=== PATIENT | female | born 1965 | race Caucasian/White ===

== ENCOUNTER 2022-07-24 12:14 | Outpatient (CLI) | payer OTHER, SELFPAY ==
[2022-07-24 14:50] LABS: Chloride* 102 mmol/L (96-114); Potassium* 4.8 mmol/L (3.6-5.1); Sodium* 136 mmol/L (135-149)
[2022-07-24 14:53] LABS: Alanine Aminotransferase* 16 U/L (4-35); Blood Urea Nitrogen* 15 mg/dL (7-30); Carbon Dioxide* 25 mmol/L (20-32); Cholesterol* 191 mg/dL (90-199); Creatinine* 0.6 mg/dL (0.5-1.5); Estimated Glomerular Filt Rate 103 ml/min; Glucose* 91 mg/dL (60-115)
[2022-07-24 14:54] LABS: Calcium* 10.1 mg/dL (8.4-10.6); Triglycerides* 86 mg/dL (40-149)
[2022-07-24 15:02] LABS: HDL Cholesterol* 116 mg/dL (>=50); LDL Cholesterol Calculated 58 mg/dL (<100)
== END 2022-07-24 12:15 | disposition home or self-care (01) ==
PROVIDERS: PCP Family Medicine; Visit Provider Family Medicine
DX: G89.29 Other chronic pain (principal); M54.2 Cervicalgia; Z13.6 Encounter for screening for cardiovascular disorders; Z79.899 Other long term (current) drug therapy
CPT/HCPCS: 80048; 80061; 84460

== ENCOUNTER 2023-09-22 10:23 | Outpatient (CLI) | payer OTHER, SELFPAY ==
--- NOTE | 2023-09-22 10:15 | CRLHL7_ITS ---
For Patients: As a result of the Century Cures Act, medical imaging exams and procedure reports are released immediately into your electronic medical record. You may view this report before your referring provider. If you have questions, please contact your health care provider. BILATERAL SCREENING MAMMOGRAM WITH COMPUTER-AIDED DETECTION AND TOMOSYNTHESIS TECHNIQUE: CC, MLO and Implant displaced views were obtained. These mammographic images have been obtained using full-field digital technique. These mammographic images were interpreted with the benefit of computer-aided detection. Breast Tomosynthesis was used in this interpretation. COMPARISON FILM: 08/23/20 [facility], [place], req. priors from [facility]. 08/15/23, 02/11/23, 02/04/23 and 02/11/23. FINDINGS: There are scattered areas of fibroglandular density IMPRESSION: There is no radiographic evidence for malignancy. ASSESSMENT: BI-RADS Category 2: Benign RECOMMENDATION: Routine screening mammogram in 1 year. A lay language report of this examination will be provided to the patient. Sahil Bustamante M.D. Diagnostic Radiologist [email or web address] MAGDA/Dictated by: Sahil Bustamante MD @ 09/23/2023 8:45:00 AM (Electronically Signed)
== END 2023-09-22 10:24 | disposition home or self-care (01) ==
PROVIDERS: PCP Family Medicine; Visit Provider Family Medicine
DX: Z12.31 Encounter for screening mammogram for malignant neoplasm of breast (principal)
CPT/HCPCS: 77063; 77067

== ENCOUNTER 2024-03-30 11:54 | Outpatient (CLI) | payer OTHER, SELFPAY | END 2024-03-30 11:55 | disposition home or self-care (01) | PROVIDERS: PCP Family Medicine; Visit Provider Family Medicine | DX: F90.0 Attention-deficit hyperactivity disorder, predominantly inattentive type (principal); Z13.6 Encounter for screening for cardiovascular disorders; Z13.9 Encounter for screening, unspecified | CPT/HCPCS: 80048; 80061; 80076; 85025 ==

== ENCOUNTER 2024-09-03 11:11 | Outpatient (CLI) | payer OTHER, SELFPAY ==
--- OUTSIDE RECORDS SUMMARY | 2024-09-03 11:19 | XMS_ITS | Continuity of Care Document ---
Author Organization [facility] Address [address] [place] [address] [place] [address] Phone Care Team Providers Care Machine Tool Builder Name Role Phone Will MD PEARCE, Tico Jeffries Advance Directives Directive Yes / No Effective Date File Name No Information Encounters Encounter Description Practice Location Reason(s) For Visit Diagnoses Date Provider Providers Copied on Encounter [facility], [address] [place] [address] [place], [id number], [place] tel:[phone] [facility] Eleanor No Information Will Tico. [address] [facility] [place], [place], [id number], [place]. tel:[phone] Family History Family Member Type Diagnosis Age At Onset No Information Payers Payer name Insurance type Covered libertarian ID Authoriza tion(s) No Information Social History Type Description Quantity Date Captured Comments Sex Female Smoking Status No Information Chief Complaint And Reason For Visit No Information Reason For Referral Reason For Referral No Information History Of Present Illness Encounter Date Complaint History Of Prese nt Illness No Information Functional Status Date Functional Assessmen t No Information Instructions Date Instruction Additional Infor mation No Information Assessments Type Assessment Date No Information Patient Care Teams Name Effective Dates (start - stop) Status Members No Information
--- OUTSIDE RECORDS SUMMARY | 2024-09-03 11:19 | XMS_ITS | Clinical Summary ---
Author Organization [facility] Address [place], [place] [address] Care Team Providers Care Winder Operator Name Role Phone Sahil Khan MD Primary Care Provider + Allergies Active Allergy Reactions Criticality Noted Date Comments Gabapentin Other - Describe In Comment Field 09/02/2019 Muscle jerking Morphine Nausea And Vomiting 09/12/2014 ~5 min after receiving morphine, pt recalls she has intolerance- N/V Penicillins *Unknown 09/12/2014 Medications Medication Sig Dispensed Refills Start Date End Date Status cyclobenzaprine (FLEXERIL) 5 mg tablet Take 5 mg by mouth. 10/12/2018 Active ALPRAZolam (XANAX) 0.5 mg tabletIndications:Anx iety Take 1 tablet by mouth at bedtime, may repeat once. 30 tablet 08/19/2019 Active oxyCODONE (OXYCONTIN) 20 mg SUSTAINED release tabletIndications:Nec k pain, chronic Take 1 tablet by mouth every 12 hours 19 tablet 08/26/2019 Active oxyCODONE-acetaminoph en, 7.5-325 mg, (PERCOCET) per tabletIndications:Nec k pain, chronic Take 1 tablet by mouth every 6 hours if needed for Pain 10 tablet 08/26/2019 Active desvenlafaxine succinate (PRISTIQ) 50 mg Extended-Release tabletIndications:Chr onic pain syndrome Take 1 tablet by mouth every morning. 30 tablet 1 09/02/2019 Active hydroxychloroquine (PLAQUENIL) 200 mg tabletIndications:Art hritis Take 1 tablet by mouth once daily. 30 tablet 09/02/2019 Active SUMAtriptan (IMITREX) 50 mg tabletIndications:Carlos danielle syndrome Take 1 tablet by mouth every 2 hours if needed for Migraine (max 2 doses in 24 hours). 20 tablet 1 09/02/2019 Active pantoprazole (PROTONIX) 20 mg tabletIndications:Gas troesophageal reflux disease, esophagitis presence not specified Take 1 tablet by mouth once daily before a meal. 30 tablet 09/02/2019 Active Active Problems Problem Noted Date Diagnosed Date Drug-seeking behavior 09/02/2019 Neck pain, chronic 09/02/2019 Gastroesophageal reflux disease 09/02/2019 Chronic pain syndrome 09/02/2019 Arthritis 09/02/2019 Immunizations Name Administration Dates Next Due Influenza, IIV4 10/23/2017,11/17/2012 Tuberculin (PPD) 06/23/2016 Family History Medical History Relation Name Comments Cancer Brother testicular Diabetes Father Multiple myeloma Mother Relation Name Status Comments Brother Alive Father Alive Mother Alive Social History Tobacco Use Types Packs/Day Years Used Date Smoking Tobacco: Every Day Cigarettes Smokeless Tobacco: Never Tobacco Cessation:Ready to Q uit: No; Counseling Given: Yes Alcohol Use Standard Drinks/Week Comments Yes 0 (1 standard drink = 0.6 oz pur e alcohol) rare PHQ-2 Answer Date Recorded PHQ-2 Score 0 09/02/2019 Sex and Gender Information Value Date Recorded Sex Assigned at Not on file Gender Identity Not on file Sexual Orientation Not on file Obstetrics History Last Filed Vital Signs Vital Sign Reading Time Taken Comments Blood Pressure 126/70 09/02/2019 8:44 AM CDT Pulse 104 09/02/2019 8:44 AM CDT Temperature 37.4 ??C (99.3 ??F) 09/12/2014 3:16 PM CS T Respiratory Rate 15 08/19/2019 8:00 AM CDT Oxygen Saturation 99% 08/19/2019 8:00 AM CDT Inhaled Oxygen Concentration - - Weight 63.3 kg (139 lb 8 oz) 09/02/2019 8:44 AM CDT Height 168.9 cm (5' 6.5) 09/02/2019 8:44 AM CDT Body Mass Index 22.18 09/02/2019 8:44 AM CDT Plan of Treatment Health Maintenance Due Date Last Done Comments Tdap 1974 HIV for age 15-65 1978 Hepatitis C screening for age 18-79 1981 Tetanus booster 1983 Pap test for age 21-65 02/11/1984 Colonoscopy through age 75 02/11/2008 Lipids for age 45-75 02/11/2008 Zoster (shingles) series for age 50+ (1 of 2) 2013 BMI (ht and wt on same day) for age 18+ 09/02/2020 09/02/2019, 08/19/2019, 06/01/2019, Additional history exists Depression screening for age 12+ 09/02/2020 09/02/2019, 06/01/2019 COVID-19 vaccine series ( season) 2024 02/19/2021, 01/30/2021 Influenza for age 50-64 07/11/2024 10/23/2017, 11/17 Mammogram for age 45-75 08/15/2024 08/15/20, 02/11/2023, 02/04/2023 Pneumococcal series for age 6-64 Aged Out No longer eligible based on patient's age to complete this topic Procedures Procedure Name Priority Date/Time Associated Diagnosis Comments XR MAMMO ALLEN UNI DIAG IMPLANT LEFT Routine 08/15/2023 9:37 AM CDT Category 3 mammography result with short follow-up interval suggested for probably benign finding from Last 3 Months or Most Recently Relevant to Health Maintenance Results * XR MAMMO ALLEN UNI DIAG IMPLANT LEFT (08/15/2023 9:37 AM CDT) Anatomical Region Laterality Modality BREASTS, Breast Left Mammography , Other 08/15/2023 10:4 8 AM CDT Impressions 08/15/2023 11:42 AM CDT 1. No evidence of malignancy. 2. Recommend annual screening mammography. Results and recommendations were discussed with the patient at the time of the exam. BI-RADS Category 2: Benign Dictated by: Charlotte Ramires MD @08/15/2023 10:48:57 AM / MONA:der PATIENTS: You will also receive a letter with your examination results in an easy to read format. ??If you have questions about your results, please contact your referring provider. Narrative 08/15/2023 11:42 AM CDT For Patients: As a result of the Century Cures Act, medical imaging exams and procedure reports are released immediately into your electronic medical record. ??You may view this report before your referring provider. ?? If you have questions, please contact your health care provider. DIGITAL DIAGNOSTIC LEFT MAMMOGRAM WITH IMPLANT-DISPLACED VIEWS USING TOMOSYNTHESIS AND COMPUTER-AIDED DETECTION, 08/15/2023 INDICATION: Six-month followup of a potential asymmetry in the medial LEFT breast noted on the mammogram of 02/11/2023. FINDINGS: There are scattered fibroglandular densities in the LEFT breast which is less dense than on the previous study when it was graded as heterogeneous. The questionable density previously seen in the medial LEFT breast is no longer evident. There is a biopsy clip in the lateral LEFT breast. No other suspicious mass, architectural distortion or malignant calcification identified. Sahil Khan MD MAMMO from Last 3 Months or Most Recently Relevant to Health Maintenance Care Teams Winder Operator Relationship Specialty Start Date End Date Sahil Khan MD [address] [place] [address] PCP - General Family Practice 01/09/23
== END 2024-09-03 11:12 | disposition home or self-care (01) ==
PROVIDERS: PCP Family Medicine; Visit Provider Family Medicine
DX: M06.9 Rheumatoid arthritis, unspecified (principal)
CPT/HCPCS: 86038; 86140; 86200; 86431

== ENCOUNTER 2025-07-22 10:23 | Outpatient (CLI) | payer OTHER, SELFPAY | END 2025-07-22 10:24 | disposition home or self-care (01) | PROVIDERS: PCP Family Medicine; Visit Provider Family Medicine | DX: Z01.818 Encounter for other preprocedural examination (principal) | CPT/HCPCS: 80048; 85025 ==

== ENCOUNTER 2025-07-25 06:20 | Day surgery (SDC) | payer OTHER, SELFPAY ==
[2025-07-25] VITALS (27 sets, daily range): BP systolic 80–122; BP diastolic 48–81; PULSE 60–98; RESP 16–18; TEMP 36.2–37.6; O2SAT 92–96; BMI 22.1
[2025-07-25] MEDS: LACTATED RINGERS 1000 ML 1,000 ML 100 ML IV ×2 (06:10→08:53)
[2025-07-25] MEDS: SODIUM CHLORIDE 0.9 % (FLUSH) 10 ML SYRINGE IVF (07:05)
--- NOTE | 2025-07-25 07:23 | W.PM.H&PU ---
History & Physical Update History & Physical Update H&P Reviewed and patient assessed: No changes noted
[2025-07-25] MEDS: CLINDAMYCIN 900 MG/50 ML-D5W 900 MG/50 ML PIGGYBACK 100 MG IVPB (07:35)
[2025-07-25] MEDS: BUPIVACAINE 0.25% 30 ML INJECTION (07:49)
[2025-07-25] MEDS: LIDOCAINE 1%-EPI 1:100,000 20 ML INFILTRATI (10:10)
[2025-07-25] MEDS: PHENYLEPHRINE 100 MCG/ML SYRINGE IVP ×2 (10:27→11:27)
--- NOTE | 2025-07-25 10:28 | P.ANES_ITS ---
Anesthesia Charges Start Date/Time Anesthesia Start Date: 07/25/25 Anesthesia Start Time: 07:23 Stop Date/Time Anesthesia Stop Date: 07/25/25 Anesthesia Stop Time: 10:25 Coding CPT Codes CPT Codes: ANESTH SURGERY OF ABDOMEN - 80341 ([id number]) P2 - PATIENT W/MILD SYST DISEASE, QK - PHYSICS FACULTY MEMBER 2-4 CNCRNT ANES PROC, QX - PATENT PROSECUTION ATTORNEY SVC W/ MD MED DIRECTION
--- NOTE | 2025-07-25 10:28 | W.ANESCHARGE ---
Anesthesia Charges Start Date/Time Anesthesia Start Date: 07/25/25 Anesthesia Start Time: 07:23 Stop Date/Time Anesthesia Stop Date: 07/25/25 Anesthesia Stop Time: 10:25 Coding CPT Codes CPT Codes: ANESTH SURGERY OF ABDOMEN - 56811 ([id number]) P2 - PATIENT W/MILD SYST DISEASE, QK - CASTING AND CURING OPERATOR 2-4 CNCRNT ANES PROC, QX - SOUND EFFECTS MANAGER SVC W/ MD MED DIRECTION
--- NOTE | 2025-07-25 10:38 | P.ANES_ITS ---
Anesthesia Charges Start Date/Time Anesthesia Start Date: 07/25/25 Anesthesia Start Time: 07:23 Stop Date/Time Anesthesia Stop Date: 07/25/25 Anesthesia Stop Time: 10:25 Coding CPT Codes CPT Codes: ANESTH SURGERY OF ABDOMEN - 83412 ([id number]) QK - TOOL LATHE OPERATOR 2-4 CNCRNT ANES PROC, QX - VENDING MACHINE COIN COLLECTOR SVC W/ MD MED DIRECTION, P2 - PATIENT W/MILD SYST DISEASE
--- NOTE | 2025-07-25 10:38 | W.ANESCHARGE ---
Anesthesia Charges Start Date/Time Anesthesia Start Date: 07/25/25 Anesthesia Start Time: 07:23 Stop Date/Time Anesthesia Stop Date: 07/25/25 Anesthesia Stop Time: 10:25 Coding CPT Codes CPT Codes: ANESTH SURGERY OF ABDOMEN - 07681 ([id number]) QK - TUB WASHER 2-4 CNCRNT ANES PROC, QX - SHEAR SETTER SVC W/ MD MED DIRECTION, P2 - PATIENT W/MILD SYST DISEASE
--- NOTE | 2025-07-25 10:43 | PM.GSPRC ---
Operative Note Date of procedure: 07/25/25 Pre-op diagnosis: 1. Incarcerated left inguinal hernia. Post-op diagnosis: 1. Incarcerated left femoral hernia. Type of Procedure: 1. Laparoscopic converted to laparoscopic assisted left femoral hernia repair with mesh. Indications: 60-year-old female was seen in clinic for evaluation of left inguinal lump. Patient initially noticed that lump at work less than 2 weeks prior to her presentation to clinic. She was lifting heavy wooden blocks with her left hand and she felt pressure in the left inguinal area but then noticed a bulge at home. She thought this was a hernia. She was seen by her primary care doctor and was diagnosed with a hernia and was referred to our surgery clinic. The bulge has decreased in size since she first noticed it. The bulge was worse with strenuous activity. On clinical exam patient had a pritchett sized lump near the left inguinal ligament. This was not reducible and felt like edematous tissue on palpation. Patient's abdomen was soft and not distended with no peritoneal signs. given patient's clinical history and her physical exam and absence of obstruction, a laparoscopic and possible open left inguinal hernia repair was recommended. The procedure was discussed in detail. The risks associated procedure including infection, bleeding, injury to preperitoneal organs, nerve pain, and hernia recurrence were all discussed with the patient, she agreed to proceed. Procedure Description: After discussing the risks and benefits of the procedure, the patient signed informed consent.? The operative site was marked and the patient was brought to the operating room and placed on the operating table in supine position.? Care was taken to pad the patient's pressure points.?? The patient was then intubated by anesthesia.?? The operative site was then prepped and draped in the usual sterile fashion.? A time-out was then performed. An infraumbilical skin incision was made with a scalpel and subcutaneous tissues were dissected with electrocautery. Anterior sheath was incised with electrocautery and rectus muscle was retracted laterally. A 12 mm spacemaker dissector system was introduced into the incision and advanced over the posterior sheath. Preperitoneal space was dissected with manually insufflating air under direct visualization. Once the tissues were dissected, the balloon was deflated and removed.? A laparoscopic balloon was placed into preperitoneal space and balloon was inflated. Preperitoneal space was insufflated with air. No bleeding was identified upon examination of preperitoneal space. We then placed two 5 mm ports suprapubically under direct visualization. ? The preperitoneal tissues were bluntly dissected with graspers.? The pubic bone was identified and? cleared from preperitoneal tissue.?? Inferior epigastrics on the left?side were retracted towards the abdominal wall.?? Mesh was noted on the left near the pubic bone. This was thought to be from pelvic sling surgery. Preperitoneal fat was attached to this mesh. This preperitoneal fat was dissected away from the mesh bluntly. This was vascular and I elected to place 5 mm clips proximally and distally and divided with hot scissors between the clips to avoid bleeding. This was away from the bladder and immediately adjacent to the mesh at the pubic bone. The left round ligament was identified and tissues around it were dissected. There was no evidence of indirect inguinal hernia. Preperitoneal fat was incarcerated through the left femoral space. With gentle retraction I attempted to reduce the femoral hernia but after multiple attempts, I was not successful. Decision was made to make left inguinal hernia incision. The preperitoneal space was deflated and the camera was removed. All laparoscopic port remained in place. Left inguinal incision was made 2 fingerbreadths superior to the left inguinal ligament. Subcutaneous fat was divided with cautery. External oblique was identified and incised with a scalpel. The external oblique was then further incised towards the external ring with Metzenbaum scissors. Self retaining retractor was placed into this inguinal space. The left ilioinguinal nerve was identified and retracted. Subcutaneous fat was dissected bluntly over the left inguinal ligament and just inferior to the left inguinal ligament. The incarcerated bulge was identified and circumferentially dissected from the left inguinal ligament. The inguinal ligament had to be incised just superior to this incarcerated bulge should be able to reduce the bulge. The incarcerated tissue was examined and appeared to be preperitoneal fat with no bowel visualized. I attempted to reduce this incarcerated fat into the femoral space but the femoral opening was small. The right angle retractor was placed through the femoral went out and the femoral space was slightly enlarged superiorly. I was then able to reduce the incarcerated fat into the preperitoneal space. This femoral opening was then closed with assistant manager airside operations's finger. We then insufflated preperitoneal space again and the camera was placed into the preperitoneal space. The femoral ring was identified and preperitoneal fat was noted to be reduced from this femoral hernia opening. The round ligament was then clipped with 5 mm clips proximally and distally and divided between the clips with hot scissors. When adequate space was developed for mesh placement, a Medium-sized Bard 3DMax? mesh was used and positioned over the left femoral opening and left inguinal canal. The mesh covered the small femoral opening very well. The mesh was tacked medially and laterally with?tacks.? Additional local anesthetic was injected directly into pre-peritoneal space. ? The space was deflated under direct visualization and mesh appeared to be still lying in a good position. The ports were then removed. Anterior sheath was then closed with a running 0-0 vicryl suture. I then directed my attention to the open left inguinal hernia incision. The soft tissue overlying the left femoral opening was then closed And anchored to the left pubic bone with a [id number] 0-0 Nurolon suture. hemostasis was achieved with cautery. The external oblique was then closed with a running 2-0 Vicryl suture. Additional local anesthetic was injected at the surgical site. Subcutaneous fat was then reapproximated with interrupted Vicryl sutures. The dermis of left inguinal incision was then reapproximated with interrupted 3-0 Vicryl sutures. The dermis of the infraumbilical incision was also reapproximated with interrupted 3-0 Vicryl sutures. The skin of all incisions was then closed with a running 4-0 Monocryl stitch. Steri strips were applied over all?incisions. A bulky gauze dressing was placed over the left inguinal incision and secured in place with tape. ? All counts were correct at the end of the case. Patient tolerated the procedure well and was transferred to PACU without any complications. Findings: Incarcerated femoral hernia containing preperitoneal fat. I was not able to reduce it laparoscopically. I made an open inguinal hernia incision and was able to reduce the femoral hernia through the open incision. The mesh was placed in the preperitoneal space. Implants: 3D Bard mesh. Anesthesia: GETA Surgeon: Genesis Diaz MD Estimated blood loss (mL): 15 Condition: stable Disposition: PACU
--- NOTE | 2025-07-25 11:51 | SUR.PHASEI ---
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 Approved for Discharge per Anesthesia.
[2025-07-25] MEDS: LACTATED RINGERS 1000 ML 1,000 ML 75 ML IV (13:02)
--- NOTE | 2025-07-25 13:07 | PM.IMCN1 ---
Date of Consult Consult date: 07/25/25 Requesting Physician: General Surgery Primary Care Provider: Sahil Khan MD Consult Narrative Reason for consult: Pain management Narrative: HOSPITALIST CONSULT Procedure: The hospital medicine team was asked by the general surgery team to manage the patient's postop acute pain in the setting of chronic pain management. There have been no perioperative complications. I have updated and reviewed the active medical problems, past medical history, past surgical history, social history, allergies and medications in our electronic EMR. This includes a cross reference to care everywhere in [facility] and with [facility] databases. PHYSICAL EXAM: CODE STATUS: FULL CODE CONSTITUTIONAL: Conversive, good historian. A/O. Knows setting and context. VITAL SIGNS: see record. HEENT: Normocephalic, atraumatic. PERRL, EOMI, conjunctivae pink, no scleral icterus. Ears and nose externally normal. Pharynx normal. NECK: No JVD. No carotid bruit, no thyromegaly, no adenopathy. CHEST: Clear to auscultation bilaterally HEART: S1 and S2 normal. ABDOMEN: EXTREMITIES: No edema. NEURO: Cranial nerves intact. Mentation normal. Normal affect. SKIN: No rashes, petechiae, concerning changes PSYCHIATRIC: Mentation normal. INVESTIGATIONS: EMR Reviewed; Pre-OP Reviewed DISPOSITION: DVT: GI: PO intake [facility] Medical History (Updated 07/25/25 @ 13:13 by Helena Louie MD) ADHD, predominantly inattentive type ?F90.0 - Attention-deficit hyperactivity disorder, predominantly inattentive type (ICD-10) Recurrent cold sores ?B00.1 - Herpesviral vesicular dermatitis (ICD-10) Migraine ?G43.909 - Migraine, unspecified, not intractable, without status migrainosus (ICD-10) Breast implant rupture ?T85.43XA - Leakage of breast prosthesis and implant, initial encounter (ICD-10) Osteopenia (05/2017) ?M85.80 - Other specified disorders of bone density and structure, unspecified site (ICD-10) History of adenomatous polyp of colon (07/18/17) ?Z86.010 - Personal history of colonic polyps (ICD-10) History of cervical dysplasia ?Z87.410 - Personal history of cervical dysplasia (ICD-10) Depression ?F32.A - Depression, unspecified (ICD-10) Insomnia ?G47.00 - Insomnia, unspecified (ICD-10) HLA-B27 spondyloarthropathy ?M47.899 - Other spondylosis, site unspecified (ICD-10) History of ulcerative colitis (~1976) ?Z87.19 - Personal history of other diseases of the digestive system (ICD-10) History of pyoderma gangrenosum ?Z87.2 - Personal history of diseases of the skin and subcutaneous tissue (ICD-10) GERD (gastroesophageal reflux disease) ?K21.9 - Gastro-esophageal reflux disease without esophagitis (ICD-10) Chronic neck pain ?M54.2 - Cervicalgia (ICD-10) ?G89.29 - Other chronic pain (ICD-10) Surgical History (Updated 07/25/25 @ 13:13 by Helena Louie MD) History of cone biopsy of cervix ?Z98.890 - Other specified postprocedural states (ICD-10) History of hysterectomy ?Z90.710 - Acquired absence of both cervix and uterus (ICD-10) History of breast augmentation ?Z98.82 - Breast implant status (ICD-10) Social History Narrative: . Smoker. Works for [employer]. What is your current living situation?: I presently have a place to live Problems where you live: no known problems In the past 12 months, utilities in danger of being shut off: no In past 12 months, lack of transportation kept you from medical appts, meetings, work, or getting things needed for daily living: no In the past 12 mos, have been you worried that your food would run out before you had money to buy more?: never true In the past 12 mos, the food you bought just didn't last and you didn't have money to buy more?: never true Smoking Status: Current every day smoker What tobacco products do you use: cigarettes Do you use any of these nicotine containing products: None How often do you have a drink containing alcohol: monthly or less Alcohol type: beer How many standard drinks containing alcohol do you have on a typical day: 1 or 2 How often do you have six or more drinks on one occasion: Never AUDIT-C Alcohol total score: 1 Non-prescribed substance use: denies use Caffeine: Yes (coffee) How often does anyone, including family, friends and others, physically hurt you: never How often does anyone, including family, friends and others, insult or talk down to you: never How often does anyone, including family, friends and others, threaten you with harm: never How often does anyone, including family, friends and others, scream or curse at you: never Are you using contraception or practicing any form of control: No Meds Home Medications and Allergies Home Medications ?Medication ?Instructions ?Recorded ?Confirmed ?Type ondansetron 8 mg disintegrating 8 mg PO TID PRN 05/28/22 07/25/25 History tablet sumatriptan succinate 6 mg/0.5 mL 6 mg subcut Q1-4H PRN 05/28/22 07/22/25 History subcutaneous cartridge (refill) albuterol sulfate 90 mcg/actuation 2 puff inhalation Q4H PRN 06/20/23 07/25/25 Rx aerosol inhaler (ProAir HFA) shortness of breath or wheezing #8.5 grams cyclobenzaprine 5 mg tablet 5 mg PO TID PRN muscle spasm #60 04/02/24 07/25/25 Rx tabs sumatriptan succinate 100 mg tablet 100 mg PO Q2H PRN migraine 08/12/24 07/25/25 Rx headache #10 tabs hydroxyzine pamoate 25 mg capsule 25 - 50 mg (1 - 2 x 25 mg) PO Q6H 12/10/24 07/25/25 Rx PRN pain #100 caps pregabalin 100 mg capsule (Lyrica) 100 mg PO QDAY #30 caps 03/07/25 07/25/25 Rx pregabalin 300 mg capsule 300 mg PO QDAY #30 caps 03/07/25 07/22/25 Rx dextroamphetamine-amphetamine 20 20 mg PO BID #60 tabs 04/11/25 07/25/25 Rx mg tablet (Adderall) sulfasalazine 500 mg tablet 0.5 g PO BID 04/11/25 07/25/25 History valacyclovir 1 gram tablet 2,000 mg PO BID 04/11/25 07/25/25 History pantoprazole 20 mg tablet,delayed 20 mg PO DAILY #90 tabs 04/29/25 07/25/25 Rx release hydroxychloroquine 200 mg tablet 200 mg PO BID #180 tabs 05/31/25 07/25/25 Rx oxycodone 15 mg tablet,crush 15 mg PO TID #90 tabs 07/22/25 07/25/25 Rx resistant,extended release 12 hr oxycodone-acetaminophen 5 mg-325 1 tab PO Q8H PRN pain #90 tabs 07/22/25 07/25/25 Rx mg tablet oxycodone-acetaminophen 5 mg-325 1 tab PO Q6H PRN pain #30 tabs 07/25/25 Rx mg tablet polyethylene glycol 3350 17 17 g PO DAILY #119 grams 07/25/25 Rx gram/dose oral powder (Miralax) Allergies Allergy/AdvReac Type Severity Reaction Status Date / Time fentanyl Allergy Intermediate patch Verified 07/25/25 06:31 caused skin redness and itching gabapentin Allergy Intermediate Nausea Verified 07/25/25 06:31 morphine Allergy Intermediate Nausea Verified 07/25/25 06:31 Penicillins Allergy Intermediate Rash Verified 07/25/25 06:31 Exam Const: Vital Signs, click to edit/add: Vital Signs - 24 hr 07/25/25 06:52 07/25/25 10:22 07/25/25 10:25 Temperature 99.7 F H 97.8 F Pulse Rate 65 71 60 Pulse Rate [Pulse Oximeter] Respiratory Rate 18 16 16 Blood Pressure 122/81 96/48 L 82/49 L Blood Pressure [Le ft Arm] Pulse Oximetry 96 93 95 Oxygen Delivery Me thod Room Air Room Air 07/25/25 10:30 07/25/25 10:35 07/25/25 10:40 Temperature 98.1 F Pulse Rate 68 68 69 Pulse Rate [Pulse Oximeter] Respiratory Rate 16 16 16 Blood Pressure 98/55 L 97/51 L 91/63 Blood Pressure [Le ft Arm] Pulse Oximetry 94 94 92 Oxygen Delivery Tx thod Room Air 07/25/25 10:45 07/25/25 10:50 07/25/25 10:55 Temperature 98.1 F Pulse Rate 70 70 71 Pulse Rate [Pulse Oximeter] Respiratory Rate 16 16 16 Blood Pressure 90/55 L 93/56 L 91/63 Blood Pressure [Le ft Arm] Pulse Oximetry 92 92 92 Oxygen Delivery Tx thod Room Air 07/25/25 11:00 07/25/25 11:05 07/25/25 11:10 Temperature 98.2 F Pulse Rate 75 78 73 Pulse Rate [Pulse Oximeter] Respiratory Rate 16 16 16 Blood Pressure 92/56 L 98/59 L 90/51 L Blood Pressure [Le ft Arm] Pulse Oximetry 93 93 93 Oxygen Delivery Me thod Room Air 07/25/25 11:15 07/25/25 11:20 07/25/25 11:25 Temperature 98.5 F Pulse Rate 79 73 80 Pulse Rate [Pulse Oximeter] Respiratory Rate 16 16 16 Blood Pressure 88/53 L 88/59 L 80/53 L Blood Pressure [Le ft Arm] Pulse Oximetry 96 92 92 Oxygen Delivery Me thod Room Air 07/25/25 11:30 07/25/25 11:35 07/25/25 11:40 Temperature 98.5 F 98.5 F Pulse Rate 75 80 85 Pulse Rate [Pulse Oximeter] Respiratory Rate 16 16 16 Blood Pressure 92/55 L 90/57 L 95/62 Blood Pressure [Le ft Arm] Pulse Oximetry 93 92 92 Oxygen Delivery Me thod Room Air Room Air 07/25/25 12:00 07/25/25 12:15 07/25/25 12:30 Temperature 97.2 F L 97.4 F L Pulse Rate Pulse Rate [Pulse Oximeter] 80 85 86 Respiratory Rate 16 16 16 Blood Pressure Blood Pressure [Le ft Arm] 97/61 100/63 98/56 L Pulse Oximetry 94 93 94 Oxygen Delivery Me thod Room Air Room Air Room Air 07/25/25 12:45 07/25/25 13:00 Temperature 98.1 F Pulse Rate Pulse Rate [Pulse Oximeter] 85 84 Respiratory Rate 16 16 Blood Pressure Blood Pressure [Le ft Arm] 106/63 95/60 Pulse Oximetry 94 93 Oxygen Delivery Me thod Room Air Room Air Assessment and Plan Assessment and plan (1) Incarcerated femoral hernia: Status: Acute (2) Incarcerated inguinal hernia: Status: Acute (3) Status post hernia repair: Status: Acute (4) Chronic, continuous use of opioids: Status: Acute (5) Chronic pain: Status: Acute (6) History of ulcerative colitis: Status: Acute (7) HLA-B27 spondyloarthropathy: Status: Chronic (8) GERD (gastroesophageal reflux disease): Status: Chronic
[2025-07-25] MEDS: OXYCODONE (CR) 10 MG TAB.ER.12H PO (13:54)
== END 2025-07-25 18:37 | disposition home or self-care (01) ==
LOC: OR 07:23 → MEDSURG 12:34
PROVIDERS: PCP Family Medicine; Visit Provider Surgery
PROC: (CPT 49650; principal; 2025-07-25 07:30)
DX: K41.30 Unilateral femoral hernia, with obstruction, without gangrene, not specified as recurrent (principal); Z53.31 Laparoscopic surgical procedure converted to open procedure
CPT/HCPCS: 49553; 00830; 00860; A9270; C1781; J0665; J0736; J1100; J1171; J1630; J1885; J2250; J2371; J2405; J2704; J2710; J3010; J7120

== ENCOUNTER 2025-08-18 14:25 | Outpatient (CLI) | payer OTHER, SELFPAY ==
--- NOTE | 2025-08-18 15:30 | CRLHL7_ITS ---
For Patients: As a result of the 21st Century Cures Act, medical imaging exams and procedure reports are released immediately into your electronic medical record. You may view this report before your referring provider. If you have questions, please contact your health care provider. CLINICAL INDICATION: Right shoulder pain. Prior injury. COMPARISON IMAGING STUDIES: Radiographs from 06/02/2025. TECHNICAL: Non-contrast MRI of the right shoulder. Axial, sagittal oblique and coronal oblique T1, PD, PD FS, T2 and T2 FS images. 1.5 [employer] MR scanner. FINDINGS: GLENOHUMERAL JOINT: Effusion/Joint Space: No effusion. Humeral Head Articular Cartilage: Mild marginal osteophyte formation. There is a focal high-grade chondral defect of the central humeral head spanning an approximately 10 x 8 millimeter extent as seen on coronal oblique PD fat-sat image number 16 of series 7 (grade 3/4). Glenoid Articular Cartilage: Subchondral cystic change underlying the central glenoid may relate to overlying grade 4 cartilage fissuring. Alignment: Maintained. Capsule: No generalized capsular edema or capsular thickening. OSSEOUS STRUCTURES: Reactive cystic-like change and bone marrow edema involving the anterior aspect of the greater tuberosity and posterior tuberosity-humeral head junction. There is no acute fracture or avascular necrosis. CORACOACROMIAL ARCH: Acromial Morphology: Type 1 acromion morphology. Mild lateral downward sloping of the acromion. No os acromiale. Slight spurring of the anterior margin of the lateral acromion. Lateral acromial thickness is 8 mm. Acromiohumeral Interval: At its narrowest, the interval measures 5 mm. Mildly prominent coracoacromial ligament. Coracohumeral Interval: At its narrowest, the coracohumeral interval measures 7 mm. Coracoid index is 20 mm. ACROMIOCLAVICULAR JOINT REGION: AC joint degenerative arthrosis. Coracoclavicular ligament intact. BURSAE: Small amount of subacromial-subdeltoid bursal fluid. ROTATOR CUFF TENDONS AND MUSCLES AND DELTOID: Supraspinatus and Infraspinatus: Severe tendinosis of the distal supraspinatus tendon with low-grade partial-thickness tendon tearing and fraying. No full-thickness tendon tear or muscle atrophy. Mild infraspinatus tendinosis without tendon tear or muscle atrophy. The small foci of calcification seen radiographically may be associated with the distal infraspinatus tendon though are not well seen by MRI. Teres Minor: No tendinosis, tendon tearing, muscle atrophy or muscle edema. Subscapularis: Mild subscapularis tendinosis. No tendon tear or muscle atrophy. Deltoid: No muscle atrophy or edema. BICEPS TENDON, LONG HEAD: No dislocation of tendon from bicipital groove. No significant tendon tear. GLENOID LABRUM: Mild degenerative labral changes. OTHER FINDINGS: There is no abnormality within the suprascapular or spinoglenoid notches nor within the quadrilateral space. No axillary adenopathy or mass. IMPRESSION: 1. Glenohumeral joint degenerative arthrosis. Focal high-grade chondral defect of the central humeral head (grade 3 or 4). Subchondral cystic change underlying the central glenoid likely relates to grade 4 cartilage fissuring. 2. Severe supraspinatus tendinosis with sequelae of low-grade partial-thickness tendon tearing and fraying. Mild infraspinatus and subscapularis tendinosis. No full-thickness rotator cuff tendon tearing. 3. Small foci of calcification adjacent to the greater tuberosity radiographically may be associated with the distal infraspinatus tendon (and would therefore reflect mild calcific tendinitis) though are not well seen by MRI. 4. AC joint degenerative arthrosis. 5. Mild subacromial subdeltoid bursitis. Dictated by Carlos Manuel Sharpe MD @ 08/19/2025 12:56:44 PM (Electronically Signed)
== END 2025-08-18 14:26 | disposition home or self-care (01) ==
PROVIDERS: PCP Family Medicine; Visit Provider Family Medicine
DX: M25.511 Pain in right shoulder (principal); M19.011 Primary osteoarthritis, right shoulder; M75.101 Unspecified rotator cuff tear or rupture of right shoulder, not specified as traumatic; M75.51 Bursitis of right shoulder
CPT/HCPCS: 73221